=== PATIENT | male | born 1950 | race Caucasian/White ===

== ENCOUNTER 2019-03-22 14:57 | Emergency (ER) | payer MEDICARE ==
[2019-03-22 15:12] VITALS: RESP 18; TEMP 97.5
--- NOTE | 2019-03-22 15:38 | ED ---
Upper Extremity HPI - General Chief Complaint: Extremity Injury, Upper Stated Complaint: Arm Bruising/Pain Source: patient, RN notes reviewed, old records reviewed Mode of arrival: ambulatory Limitations: no limitations - History of Present Illness Initial Comments: Patient is a 68-year-old male presents emergency department today for evaluation in regards to right upper arm pain and bruising. Patient warts he was diagnosed with a rotator cuff tear and muscle tear and states that he's noticed a large amount of bruising in the past day. He denies any excessive lifting or e xtremity movements. Patient has had no fevers or chills, chest pain or shortness breath. Patient has upcoming appointment for surgery for the rotator cuff in one month. Patient states is been not use been using a sling. - Related Data Previous Rx's Medication Instructions Recorded Acetaminophen-Codeine 300-30mg 1 tab PO Q4H PRN 3 Days #18 tablet 03/22/19 [Tylenol w/codeine #3] Allergies Allergy/AdvReac Type Severity Reaction Status Date / Time No Known Allergies Allergy Verified 03/22/19 15:12 Review of Systems ROS Statement: Those systems with pertinent positive or pertinent negative responses have been documented in the HPI. ROS Other: All systems not noted in ROS Statement are negative. Past Medical History Past Medical History: Hyperlipidemia History of Any Multi-Drug Resistant Organisms: None Reported Past Surgical History: Orthopedic Surgery Past Psychological History: No Psychological Hx Reported Smoking Status: Never smoker Past Alcohol Use History: Occasional Past Drug Use History: None Reported General Exam - General Exam Comments Initial Comments: Laboratory and 16-year-old male. No distress. Limitations: no limitations Head exam: Present: atraumatic, normocephalic, normal inspection Eye exam: Present: normal appearance, PERRL, EOMI. Absent: scleral icterus, conjunctival injection, periorbital swelling ENT exam: Present: normal exam, mucous membranes moist Neck exam: Present: normal inspection. Absent: tenderness, meningismus, lymphadenopathy Respiratory exam: Present: normal lung sounds bilaterally. Absent: respiratory distress, wheezes, rales, rhonchi, stridor Cardiovascular Exam: Present: regular rate, normal rhythm, normal heart sounds. Absent: systolic murmur, diastolic murmur, rubs, gallop, clicks GI/Abdominal exam: Present: soft, normal bowel sounds. Absent: distended, tenderness, guarding, rebound, rigid Extremities exam: Present: normal inspection, full ROM, normal capillary refill, other (Patient has a large hematoma over the right biceps.). Absent: tenderness, pedal edema, joint swelling, calf tenderness Back exam: Present: normal inspection Neurological exam: Present: alert, oriented X3, CN II-XII intact Psychiatric exam: Present: normal affect, normal mood Skin exam: Present: warm, dry, intact, normal color. Absent: rash Course Vital Signs 03/22/19 03/22/19 03/22/19 15:06 16:20 17:45 Temperature 97.5 F L Pulse Rate 88 89 72 Respiratory 18 18 18 Rate Blood Pressure 159/80 130/66 154/72 O2 Sat by Pulse 97 100 100 Oximetry Medical Decision Making - Medical Decision Making 60-year-old male presents today for evaluation for right arm pains, swelling and bruising. Does have a known history of rotator cuff tear and bicep tendon tear. He states he isn't doing any significant range of motion. At this time Patient does have a hematoma over his right bicep. Patient's ultrasound was completed shows no DVT. Discussed with superficial hematoma. Discussed Patient was placed in a sling for rotator cuff tear to follow up with orthosis. And discharged with a short course of pain medication for pain relief especially at nighttime. Patient is agreeable treatment plan will comply. Discussed also using some range of motion of the shoulder to prevent frozen shoulder syndrome. Allquestions answered. - Radiology Data Radiology results: report reviewed Right upper arm ultrasound stated for DVT. Disposition Clinical Impression: Hematoma, Rotator cuff disorder Disposition: HOME SELF-CARE Condition: Good Instructions (If sedation given, give patient instructions): Rotator Cuff Injury (ED), Hematoma (ED) Additional Instructions: Please use medication as discussed. Patient should remain in sling. Follow-up with primary care doctor and orthopedic. Please follow up with family doctor if symptoms have not improved over the next two days. Please return to the emergency room if your symptoms increase or worsen or for any other concerns. Prescriptions: Acetaminophen-Codeine 300-30mg [Tylenol w/codeine #3] 1 tab PO Q4H PRN 3 Days #18 tablet PRN Reason: Pain Is patient prescribed a controlled substance at d/c from ED?: No Referrals: Peggy Orourke MD [Primary Care Provider] - 1-2 days Time of Disposition: :38
[2019-03-22] MEDS ORDERED: ACET/COD 300 MG/30 MG STARTER PACK 6 TAB BTL PO STA (16:41)
--- NOTE | 2019-03-22 17:04 | US ---
EXAMINATION TYPE: US venous doppler duplex UE RT DATE OF EXAM: 03/22/2019 COMPARISON: NONE CLINICAL HISTORY: hematoma, contusion, . Torn rotator cuff, surgery scheduled in March 2019. Bruise right arm. Pain SIDE PERFORMED: Right Right Arm: Negative for DVT IMPRESSION: No evidence of deep venous thrombosis in the right arm.
[2019-03-22 17:46] VITALS: BP 154/72; PULSE 72
== END 2019-03-22 17:45 | disposition home or self-care (01) ==
LOC: EC 14:57
DX: S40.021A Contusion of right upper arm, initial encounter (principal); S46.011A Strain of muscle(s) and tendon(s) of the rotator cuff of right shoulder, initial encounter; X58.XXXA Exposure to other specified factors, initial encounter; M79.621 Pain in right upper arm
CPT/HCPCS: 99284

== ENCOUNTER → 2020-03-05 | Outpatient (CLI) | payer MEDICARE ==
--- NOTE | 2020-03-05 11:10 | XR ---
EXAMINATION TYPE: XR ribs bilat w pa chest xray DATE OF EXAM: 03/05/2020 COMPARISON: 09/02/2008 HISTORY: Rib pain TECHNIQUE: Two-view bilateral ribs FINDINGS: No pneumothorax is evident. No displaced rib fractures are identified costochondral cartila ge calcification is present. IMPRESSION: 1. No acute posttraumatic changes bilateral ribs.
== END | disposition home or self-care (01) ==
LOC: RADXRYALE 10:31
PROVIDERS: ATTEND Internal Medicine
DX: R07.81 Pleurodynia (principal)
CPT/HCPCS: 71111

== ENCOUNTER → 2021-12-16 | Outpatient (CLI) | payer MEDICARE ==
--- NOTE | 2021-12-16 14:27 | XR ---
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 Prominent anterior endplate spondylosis throughout the l umbar spine and visualized lower thoracic spine. Mild degenerative disc disease throughout. Vertebral body heights are preserved and alignment is maintained. No pars interarticularis defect on the obliq ue views. 5 lumbar type vertebral bodies. Impression: Mild degenerative disc disease but with prominent, nearly bridging endplate spondylosis throughout. F acet arthropathy mid to lower lumbar spine. No vertebral compression collapse or malalignment.
== END | disposition home or self-care (01) ==
LOC: RADXRYALE 13:57
PROVIDERS: ATTEND Internal Medicine
DX: M51.37 Other intervertebral disc degeneration, lumbosacral region (principal); M47.815 Spondylosis without myelopathy or radiculopathy, thoracolumbar region
CPT/HCPCS: 72110

== ENCOUNTER → 2022-01-06 | Outpatient (CLI) | payer MEDICARE ==
--- NOTE | 2022-01-06 15:57 | XR ---
3 views right ankle. DATE: 01/06/2022. COMPARISON: None available. CLINICAL HISTORY: Lateral malleolar pain. FINDINGS: There is no fracture, subluxation or dislocation. The joint spaces and soft tissues are within normal limits. IMPRESSION: No acute osseous abnormalities.
== END | disposition home or self-care (01) ==
LOC: RADXRYALE 15:42
PROVIDERS: ATTEND Internal Medicine
DX: M25.571 Pain in right ankle and joints of right foot (principal)

== ENCOUNTER → 2023-09-05 | Outpatient (CLI) | payer MEDICARE | END | disposition home or self-care (01) | LOC: LABWHC1 14:30 | PROVIDERS: ATTEND Nurse Practitioner Family | DX: L40.0 Psoriasis vulgaris (principal) | CPT/HCPCS: 36415; 86480 ==

== ENCOUNTER → 2024-08-15 | Outpatient (CLI) | payer MEDICARE ==
[2024-08-15 15:31] LABS: Basophils # (A) 0.03 X 10*3/uL (0.00-0.10); Basophils % (A) 0.3 %; Eosinophils # (A) 0.17 X 10*3/uL (0.04-0.35); Eosinophils % (A) 1.8 %; HCT 45.6 % (39.6-50.0); HGB 14.4 g/dL (13.0-17.0); Lymphocytes # (A) 1.69 X 10*3/uL (0.90-5.00); Lymphocytes % (A) 18.2 %; MCH 26.9 pg (27.0-32.0); MCHC 31.6 g/dL (32.0-37.0); MCV 85.2 FL (80.0-97.0); Mean Platelet Volume 12.1 FL (9.5-12.2); Monocytes # (A) 0.82 X 10*3/uL (0.20-1.00); Monocytes % (A) 8.8 %; NRBC Per 100 WBC 0 X 10*3/uL (0.00-0.01); Neutrophils # (A) 6.55 X 10*3/uL (1.80-7.70); Neutrophils % (A) 70.6 %; Platelet Count 192 X 10*3/uL (140-440); RBC 5.35 X 10*6/uL (4.40-5.60); RDW 14.6 % (11.5-14.5); WBC 9.29 X 10*3/uL (4.50-10.00)
[2024-08-15 16:09] LABS: ALT 19 U/L (10-49); AST 17 U/L (14-35); Albumin 4.1 g/dL (3.8-4.9); Albumin/Globulin Ratio 1.95 Ratio (1.60-3.17); Alkaline Phosphatase 142 U/L (41-126); BUN/Creat Ratio 19.25 Ratio (12.00-20.00); Blood Urea Nitrogen 15.4 mg/dL (9.0-27.0); Calcium 9.3 mg/dL (8.7-10.3); Carbon Dioxide 23.4 mmol/L (21.6-31.8); Chloride 107 mmol/L (96-109); Chol/HDL Ratio 2.78 Ratio; Globulin 2.1 g/dL (1.6-3.3); Glucose 102 mg/dL (70-110); LDL Cholesterol,Calculated 73.8 mg/dL (0.0-131.0); Potassium 4.5 mmol/L (3.5-5.5); Sodium 142 mmol/L (135-145); Total Bilirubin 0.4 mg/dL (0.3-1.2); Total Protein 6.2 g/dL (6.2-8.2); VLDL Calculation 19.72 mg/dL (5.00-40.00)
[2024-08-15 16:10] LABS: Prostate Specific Antigen 0.95 ng/mL (0.000-6.500)
== END | disposition home or self-care (01) ==
LOC: LABWHC1 09:05
PROVIDERS: ATTEND Internal Medicine
DX: Z00.01 Encounter for general adult medical examination with abnormal findings (principal); Z11.1 Encounter for screening for respiratory tuberculosis; Z12.5 Encounter for screening for malignant neoplasm of prostate; E78.00 Pure hypercholesterolemia, unspecified
CPT/HCPCS: 36415; 80053; 80061; 84153; 85025; 86480